=== PATIENT | female | born 1990 | race Two or more races ===

== ENCOUNTER 2020-05-02 00:40 | Emergency (ER) | payer MEDICAID, OTHER ==
[~2020-05-02] VITALS: Ht 157.5 cm; Wt 73.9 kg
[2020-05-02 03:56] VITALS: BP 130/77
[2020-05-02] MEDS ORDERED: ACETAMINOPHEN 325 MG TAB PO ONE (04:00)
== END 2020-05-02 05:49 | disposition home or self-care (01) ==
LOC: ER 00:43
DX: K05.219 Aggressive periodontitis, localized, unspecified severity (principal)
CPT/HCPCS: 70486